=== PATIENT | male | born 1995 | race Two or more races ===

== ENCOUNTER 2023-08-29 15:59 | Emergency (ER) | payer OTHER ==
[~2023-08-29] VITALS: Ht 182.9 cm; Wt 104.5 kg
[2023-08-29] MEDS: HYDROcodone-ACET 10/325MG TAB PO ONE (16:29)
[2023-08-29] MEDS ORDERED: CYCL-837 PO (18:52)
[2023-08-29] MEDS ORDERED: NAPR-1334 PO (18:52)
[2023-08-29 20:07] VITALS: BP 117/69; PULSE 74; RESP 17; TEMP 99.1; O2SAT 96
== END 2023-08-29 20:08 | disposition home or self-care (01) ==
LOC: ER 15:59
DX: S06.0XAA Concussion with loss of consciousness status unknown, initial encounter (principal); S40.011A Contusion of right shoulder, initial encounter; V89.2XXA Person injured in unspecified motor-vehicle accident, traffic, initial encounter; Y93.55 Activity, bike riding; Y92.89 Other specified places as the place of occurrence of the external cause; Y99.8 Other external cause status
CPT/HCPCS: 70450; 71101; 72125; 73000; 73030